=== PATIENT | male | born 1970 | race Caucasian/White ===

== ENCOUNTER → 2021-08-06 10:40 | Outpatient (BNVA) | payer OTHER, SELFPAY | PROVIDERS: Visit Provider Surgery ==

== ENCOUNTER 2021-09-23 05:59 | Day surgery (SDC) | payer OTHER, SELFPAY ==
[2021-09-17 09:10] VITALS: BMI 30.1
--- NOTE | 2021-09-22 13:10 | HO.ANESPROP2 ---
Documented by User: Lorraine Cheatham NP 09/22/21 13:11 HPI - Anesthesia Eval Consult details Narrative: 51yo M for Hernia Repair Umbilical PMFSH Active Problems Active Problems: All Active Problems (Updated 09/17/21 @ 08:58 by Huong Martinez RN) Umbilical hernia (Acute) Smoker (Acute) Past Medical History Medical History HTN (hypertension) Hyperlipidemia Smoker Umbilical hernia Family History Family History Brother Leukemia Maternal Uncle Cancer of unknown origin Surgical History Surgical History History of hernia surgery Social History Social History Are you a primary home care manager to a significant other at home: No Do you presently have visiting nurse or other home services: No Alcohol intake: current Alcohol intake frequency: a few times a month Patient Tobacco Use Status: Current everyday Tobacco user Tobacco use type: Cigar Use of substances other than those prescribed or required for medical reasons: No Have you been hit, kicked, punched, or otherwise hurt by someone within the past year? If so, by whom?: No Are you DNR?: No Advance Directives: No Advance Directives Information Provided: No Advance Directives on File: No Recently lost weight without trying: No Eating poorly because of decreased appetite: No Nutrition Risks: No Nutritional Risk Meds Allergies Allergy/AdvReac Type Severity Reaction Status Date / Time SEASONAL ALLERGIES Allergy Mild HEADACHES Uncoded 09/17/21 08:58 Home Medications Medication Instructions Recorded Confirmed Last Taken Type atorvastatin 40 mg tablet 40 mg PO DAILY 08/06/21 09/17/21 Unknown History cetirizine 10 mg tablet 10 mg PO DAILY 08/06/21 09/17/21 Unknown History fluticasone propionate 50 1 spray INTRANASAL DAILY 08/06/21 09/17/21 Unknown History mcg/actuation nasal spray,suspension hydrochlorothiazide 25 mg tablet 25 mg PO DAILY 08/06/21 09/17/21 Unknown History Exam Exam Date and Time: September 22, 2021 1310 Height,Weight and Vital Signs: Height 5 ft 9 in Weight 92.533 kg Assessment and Plan Assessment Anesthesia Assessment: Chart Reviewed Documented by User: El Powers MD 09/23/21 07:26 COUNTS INCLUDE 234 BEDS AT THE [facility] Past Medical History Medical History HTN (hypertension) Hyperlipidemia Smoker Umbilical hernia Family History Family History Brother Leukemia Maternal Uncle Cancer of unknown origin Family history of problems with anesthesia: No Surgical History Surgical History History of hernia surgery History of Problems with Anesthesia: No Social History Social History Are you a primary home care manager to a significant other at home: No Do you presently have visiting nurse or other home services: No Alcohol intake: current Alcohol intake frequency: a few times a month Patient Tobacco Use Status: Current everyday Tobacco user Tobacco use type: Cigar Use of substances other than those prescribed or required for medical reasons: No Have you been hit, kicked, punched, or otherwise hurt by someone within the past year? If so, by whom?: No Are you DNR?: No Advance Directives: No Advance Directives Information Provided: No Advance Directives on File: No Recently lost weight without trying: No Eating poorly because of decreased appetite: No Nutrition Risks: No Nutritional Risk Meds Allergies Allergy/AdvReac Type Severity Reaction Status Date / Time SEASONAL ALLERGIES Allergy Mild HEADACHES Uncoded 09/17/21 08:58 Home Medications Medication Instructions Recorded Confirmed Last Taken Type atorvastatin 40 mg tablet 40 mg PO DAILY 08/06/21 09/17/21 Unknown History cetirizine 10 mg tablet 10 mg PO DAILY 08/06/21 09/17/21 Unknown History fluticasone propionate 50 1 spray INTRANASAL DAILY 08/06/21 09/17/21 Unknown History mcg/actuation nasal spray,suspension hydrochlorothiazide 25 mg tablet 25 mg PO DAILY 08/06/21 09/17/21 Unknown History Exam Airway Mallampati Class: I TM Dist: >3cm Neck ROM: Full Loose/Missing/Broken Teeth: Yes, Upper and Lower Heart: ok Lungs: ok Assessment and Plan Final Anesthetic Review Family History of Problems with Anesthesia: No History of Problems with Anesthesia: No ASA Class: II Final Preanesthetic Review: No Changes in Pt Med Stat, Meds/Allgs Chart Reviewed, Consent Obtained/Reviewed and Anes Risks/Benef Reviewed Patient Risk: Low Procedure Risk: Low Anesthetic Plan Anesthetic Plan: GA and Agree w/ Assess. and Plan Disposition: Standard PACU
[2021-09-23] VITALS (7 sets, daily range): BP systolic 124–154; BP diastolic 85–103; PULSE 67–78; RESP 16; TEMP 36.2–36.4; O2SAT 98–99; BMI 29.7
[2021-09-23] MEDS: Lactated Ringers 1,000 ML 100 ML IVCONT (06:45)
--- NOTE | 2021-09-23 07:17 | MHC.SHP ---
Pre-Procedural Eval Section A Date of Service: 09/23/21 Section B Chief Complaint: Umbilical Hernia Details of Present Illness: has reducible mass on umbilicus Relevant Family History (Specify if Yes): No Relevant Social History: Tobacco Use Present Medications: see Short Stay Collaborative assessment Medical History: Significant History (smoker, HTN) History of Previous Operations: No relevant previous surgery Allergies: Allergies Allergy/AdvReac Type Severity Reaction Status Date / Time SEASONAL ALLERGIES Allergy Mild HEADACHES Uncoded 09/17/21 08:58 Review of Systems Sugical H&P ROS: Negative: Constitution, Cardiovascular, Respiratory, Neurological, Psychiatric, Hem-Onc, Allergic/Immunologic, Gastrointestinal, Genitourinary, Musculoskeletal, Integumentary, Endocrine and Eyes/Ears/Nose/Throat Exam Surgical H&P Exam: Normal: HEENT, Normal: Heart, Normal: Lungs, Normal: Extremities, Normal: Skin and Normal: Neurological and Significant Findings: Abdomen (small umbilical hernia, about 2 cm) Plan Diagnosis/Plan: Unchanged I have reviewed the history and physical and performed a pertinent physical examination on my patient. No changes have occurred unless specified.
--- NOTE | 2021-09-23 08:05 | W.PM.OPN ---
Operative Note Operative Note Date of Service: 09/23/21 Narrative: Preop diagnosis: Umbilical hernia Postop diagnosis: Umbilical hernia Procedure: Repair of umbilical hernia Surgeon: Tyler Gann MD back office medical assistant: ARNAV Lange Patient is a 51-year-old male with a partially reducible mass on the umbilicus consistent with umbilical hernia. This was about a 2 cm hernia. He also had a surgical scar on the area and he stated that he had groin hernia repair which may have been laparoscopic. He says he otherwise does not recall any previous surgery on the umbilicus. He understood the technique of repair with possible mesh placement. He was aware of the risks, benefits, and alternatives He was brought to the operating placed supine the table under general anesthesia via laryngeal mask airway. The area of the umbilicus prepped and draped in the usual sterile fashion. A surgical time-out was done. The patient received cefazolin 2 g IV preoperatively I infiltrated the planned line of incision using lidocaine 1%. I made a short transverse curvilinear incision in the infraumbilical margin using a blade 15. This carried down through the full-thickness skin subcutaneous fat. We then proceeded to lift the umbilicus as a flap off of the rest of the fascia using sharp dissection Metzenbaum scissors and electrocautery Once this was done, as able to visualize the hernia which contained omental fat. I proceeded to sharply dissect the hernia contents off the rest of the umbilicus and the fascial edge using sharp dissection with Metzenbaum scissors. By doing so was able to eventually free up the entire herniated fat and define the hernia defect. I was therefore able to reduce the hernia through the defect. Direct visualization so that the underside of the fascial defect was clear. The defect was actually much smaller and measured about probably 7 mm in size. I therefore decided to repair this primarily without mesh. I used a Maxon 1 [id number] stitch to close the small fascial defect. I then proceeded to tack the umbilicus back to the fascia to recreate the dimple The subcutaneous layer was reapposed with Dexon 3-0 interrupted sutures. Skin closure was achieved with Dexon 4-0 subcuticular running stitch. Steri-Strips and dressings were applied. The incision was infiltrated with Marcaine 0.5% for postop analgesia and the procedure was completed. Initial and final counts of sponges and instruments were correct. Estimated blood loss was less than 5 cc The patient was then extubated without difficulty and transferred to the recovery room with stable vital signs. .
== END 2021-09-23 10:10 | disposition home or self-care (01) ==
PROVIDERS: PCP Internal Medicine; Visit Provider Surgery
PROC: (CPT 49585; principal; 2021-09-23 07:30)
DX: K42.9 Umbilical hernia without obstruction or gangrene (principal); L90.5 Scar conditions and fibrosis of skin; I10 Essential (primary) hypertension; J30.2 Other seasonal allergic rhinitis; Z79.51 Long term (current) use of inhaled steroids; Z79.899 Other long term (current) drug therapy; F17.200 Nicotine dependence, unspecified, uncomplicated
CPT/HCPCS: 49585; J0690; J1100; J1885; J2250; J2405; J3010

== ENCOUNTER → 2021-10-06 13:42 | Outpatient (BNVA) | payer OTHER, SELFPAY | PROVIDERS: PCP Internal Medicine; Visit Provider Surgery ==

== ENCOUNTER 2023-06-25 12:36 | Day surgery (SDC) | payer OTHER, SELFPAY ==
[2023-06-23 07:37] VITALS: BMI 28.6
--- NOTE | 2023-06-24 10:31 | HO.ANESPROP2 ---
Documented by User: Lorraine Cheatham NP 06/24/23 10:31 HPI - Anesthesia Eval Consult details Narrative: 52yo M for Colonoscopy PMFSH Active Problems Active Problems: All Active Problems Encounter for screening colonoscopy (Acute) Umbilical hernia (Acute) Smoker (Acute) Past Medical History Medical History (Updated 10/26/22 @ 10:19 by Leah Xie PA-C) HTN (hypertension) Hyperlipidemia Smoker Umbilical hernia Family History Family History Brother Leukemia Maternal Uncle Cancer of unknown origin Family history of problems with anesthesia: No Surgical History Surgical History (Updated 06/25/23 @ 12:58 by Daisy Feliz RN) History of hernia surgery History of umbilical hernia repair (~2020) Hx of tonsillectomy History of Problems with Anesthesia: No Social History Social History (Updated 10/20/22 @ 14:29 by Leah Xie PA-C) Household Members Other:: - 5 kids combined Are you a primary rn patient care to a significant other at home: No Do you presently have visiting nurse or other home services: No Alcohol intake: current Alcohol intake frequency: holidays/special occasions only Patient Tobacco Use Status: Current everyday Tobacco user Tobacco use type: Cigar Are you DNR?: No Advance Directives: No Advance Directives Information Provided: Yes Meds Allergies Allergy/AdvReac Type Severity Reaction Status Date / Time SEASONAL ALLERGIES Allergy Mild HEADACHES Uncoded 09/17/21 08:58 Home Medications Medication Instructions Recorded Confirmed Last Taken Type atorvastatin 40 mg tablet 40 mg PO DAILY 08/06/21 06/25/23 12/26/22 History cetirizine 10 mg tablet 10 mg PO DAILY 08/06/21 06/25/23 12/26/22 History fluticasone propionate 50 1 spray intranasal DAILY 08/06/21 06/25/23 12/26/22 History mcg/actuation nasal spray,suspension hydrochlorothiazide 25 mg tablet 25 mg PO DAILY 08/06/21 06/25/23 12/26/22 History Exam Exam Date and Time: June 24, 2023 1031 Height,Weight and Vital Signs: Height 5 ft 9 in Weight 87.997 kg Assessment and Plan Assessment Anesthesia Assessment: Chart Reviewed Final Anesthetic Review Family History of Problems with Anesthesia: No History of Problems with Anesthesia: No Documented by User: Aurea Morocho MD 06/25/23 13:20 [facility] Past Medical History Medical History (Updated 10/26/22 @ 10:19 by Leah Xie PA-C) HTN (hypertension) Hyperlipidemia Smoker Umbilical hernia Family History Family History Brother Leukemia Maternal Uncle Cancer of unknown origin Surgical History Surgical History (Updated 06/25/23 @ 12:58 by Daisy Feliz RN) History of hernia surgery History of umbilical hernia repair (~2020) Hx of tonsillectomy Social History Social History (Updated 10/20/22 @ 14:29 by Leah Xie PA-C) Household Members Other:: - 5 kids combined Are you a primary rn patient care to a significant other at home: No Do you presently have visiting nurse or other home services: No Alcohol intake: current Alcohol intake frequency: holidays/special occasions only Patient Tobacco Use Status: Current everyday Tobacco user Tobacco use type: Cigar Are you DNR?: No Advance Directives: No Advance Directives Information Provided: Yes Meds Allergies Allergy/AdvReac Type Severity Reaction Status Date / Time SEASONAL ALLERGIES Allergy Mild HEADACHES Uncoded 09/17/21 08:58 Home Medications Medication Instructions Recorded Confirmed Last Taken Type atorvastatin 40 mg tablet 40 mg PO DAILY 08/06/21 06/25/23 12/26/22 History cetirizine 10 mg tablet 10 mg PO DAILY 08/06/21 06/25/23 12/26/22 History fluticasone propionate 50 1 spray intranasal DAILY 08/06/21 06/25/23 12/26/22 History mcg/actuation nasal spray,suspension hydrochlorothiazide 25 mg tablet 25 mg PO DAILY 08/06/21 06/25/23 12/26/22 History Exam Airway Mallampati Class: II TM Dist: >3cm Neck ROM: Full Loose/Missing/Broken Teeth: Yes and Upper Assessment and Plan Assessment Anesthesia Assessment: Anesthesia Plan Discussed Final Anesthetic Review NPO: Yes ASA Class: II Final Preanesthetic Review: No Changes in Pt Med Stat, Meds/Allgs Chart Reviewed, Consent Obtained/Reviewed and Anes Risks/Benef Reviewed Patient Risk: Intermediate Procedure Risk: Low Anesthetic Plan Anesthetic Plan: MAC: Disposition: Standard PACU
[2023-06-25 12:53] VITALS: BP 118/75; PULSE 78; RESP 20; TEMP 36.1; O2SAT 96
[2023-06-25] MEDS: Lactated Ringers 1,000 ML 100 ML IVCONT (13:06)
--- NOTE | 2023-06-25 13:16 | MHC.SHP ---
Pre-Procedural Eval Section A Date of Service: 06/25/23 The patient is an INPATIENT: No The History & Physical has been completed within 30 days and I have reviewed it.: No Section B Chief Complaint: screening Relevant Family History (Specify if Yes): No Relevant Social History: Tobacco Use Present Medications: see Short Stay Collaborative assessment Medical History: Significant History (HTN (hypertension) Hyperlipidemia Smoker Umbilical hernia) History of Previous Operations: Relevant previous surgery/procedure and date(s) (History of hernia surgery History of umbilical hernia repair (~2020)) Allergies: Allergies Allergy/AdvReac Type Severity Reaction Status Date / Time SEASONAL ALLERGIES Allergy Mild HEADACHES Uncoded 09/17/21 08:58 Review of Systems Sugical H&P ROS: Negative: Constitution, Cardiovascular, Respiratory and Gastrointestinal Exam Surgical H&P Exam: Normal: Heart, Normal: Lungs, Normal: Extremities and Normal: Abdomen Plan Diagnosis/Plan: Unchanged I have reviewed the history and physical and performed a pertinent physical examination on my patient. No changes have occurred unless specified. Time Spent With Patient Time: Total time managing care of this patient today ____ minutes.
--- NOTE | 2023-06-25 13:22 | W.PM.OPN ---
Operative Note Operative Note Date of Service: 06/25/23 Narrative: COLONOSCOPY TILL CECUM WITH BIOPSIES, SNARE POLYPECTOMY, SUBMUCOSAL INJECTION AND HEMOCLIP PLACEMENT Pre-op diagnosis: colon cancer screening Post-op diagnosis:? colon polyps, diverticulosis, hemorrhoids Endoscopist:? Jose Alberto German MD Anesthesia:?MAC Consent: Indications for the procedure and potential complications of bleeding, perforation, reaction to medications and missed diagnosis were discussed with the patient and informed consent was obtained. Instrument: Olympus PCF H 190 L variable stiffness pediatric colonoscope Monitoring: Vital signs and clinical assessment, intermittent blood pressure monitoring, continuous EKG monitoring, Pulse oximetry and Carbon Dioxide monitoring were done throughout the procedure. Please see anesthesia flowsheet. Colon withdrawl time was 25 minutes. Procedure: The patient was placed in the left lateral decubitis position and pre-procedure medications were administered. After a digital rectal examination of the ano-rectum, the video colonoscope was inserted into the rectum and advanced through the colon to the cecum. The colonoscope was slowly withdrawn in a retrograde panoramic fashion and the colon mucosa was carefully examined including a retroflexed view of the rectum. Findings and interventions are described below. Procedure Difficulty: Without difficulty Findings: Terminal Ileum: Not evaluated Cecum: A 3-4 mm sessile polyp adjacent to the appendicular orifice - removed with a cold bx Prominent and nodular appearing ileocecal valve - biopsies were obtained Ascending Colon: Normal Transverse Colon: Normal Descending Colon: moderate diverticulosis Sigmoid Colon: A 2 cms sessile polyp versus submucosal nodule at 25 cms - removed with a hot snare. Submucosal fat exposed at the base - suggestive of submucosal lipoma Polypectomy site was closed with 1 hemoclip and marked by May ink. Moderate diverticulosis Rectum: Normal Ano-rectum: Moderate internal hemorrhoids Colon preparation: Excellent Impression and Post Procedure Diagnosis: Colonoscopy Findings: One small and one medium sized polyps removed Prominent and nodular appearing ileocecal valve - biopsies were obtained Moderate diverticulosis seen in the left colon Moderate hemorrhoids on retroflexed exam. Plan: I will send a letter with pathology results Repeat Colonoscopy interval based on path results - in 3-5 years if polyps are adenomatous and 10 years if polyps are hyperplastic. Above findings were reviewed with the patient and colon polyps and diverticulosis handouts were given in the discharge area
[2023-06-25 14:15] VITALS: BP 90/52; PULSE 77; RESP 16; TEMP 36.1; O2SAT 97
[2023-06-25 14:20] VITALS: BP 98/54; PULSE 66; RESP 16; O2SAT 99
[2023-06-25 14:25] VITALS: BP 93/55; PULSE 63; RESP 16; O2SAT 99
[2023-06-25 14:40] VITALS: BP 110/67; PULSE 69; RESP 16; TEMP 36.1; O2SAT 96
== END 2023-06-25 15:23 | disposition home or self-care (01) ==
PROVIDERS: Visit Provider Internal Medicine Gastroenterology
PROC: 0DJD8ZZ Inspection of Lower Intestinal Tract, Via Natural or Artificial Opening Endoscopic (ICD-10-PCS; CPT 45378; principal; 2023-06-25 13:50)
DX: Z12.11 Encounter for screening for malignant neoplasm of colon (principal); D12.5 Benign neoplasm of sigmoid colon; K63.5 Polyp of colon; K57.30 Diverticulosis of large intestine without perforation or abscess without bleeding; K64.8 Other hemorrhoids; I10 Essential (primary) hypertension; E78.5 Hyperlipidemia, unspecified; J30.2 Other seasonal allergic rhinitis; F17.290 Nicotine dependence, other tobacco product, uncomplicated; Z79.51 Long term (current) use of inhaled steroids; Z79.899 Other long term (current) drug therapy; Z98.890 Other specified postprocedural states
CPT/HCPCS: 45385; 45380; 45381; 88305; 88342

== ENCOUNTER → 2023-06-25 12:36 | Outpatient (BNV) | payer OTHER, SELFPAY | PROVIDERS: Visit Provider Internal Medicine Gastroenterology | DX: Z12.11 Encounter for screening for malignant neoplasm of colon (principal); K63.5 Polyp of colon; K57.90 Diverticulosis of intestine, part unspecified, without perforation or abscess without bleeding; K64.8 Other hemorrhoids | CPT/HCPCS: 45380; 45381; 45385 ==